=== PATIENT | male | born 1980 | race Caucasian/White ===

== ENCOUNTER 2018-02-25 21:45 | Inpatient (IN) | payer BC, OTHER ==
[~2018-02-25] VITALS: Ht 185.4 cm; Wt 88.2 kg
[2018-02-25] MEDS ORDERED: RT-ALBUTEROL/IPRATROPIUM 3 ML (DUONEB) VIAL ONE (22:05)
--- NOTE | 2018-02-25 22:10 | ED Respiratory ---
General Chief Complaint: Cough/Cold/Flu Symptoms Stated Complaint: CONGESTION,FEVER,COUGH,SOB Nursing Triage Note: PT STATES HE WAS SEEN IN A CLINIC AND PRESCRIBED ANTIBIOTICS AND GIVEN A STEROID SHOT FOR AN UPPER RESPIRATORY INFECTION FIVE DAYS AGO, PRESENTS TO THE ED REPORTING A LOW GRADE FEVER AND FEELING LIKE THERE IS MUCUS IN HIS LUNGS. Source: patient Exam Limitations: no limitations (AMADO AMIN APRN) History of Present Illness Date Seen by Provider: Feb 25, 2018 Time Seen by Provider: 22:08 Initial Comments to ER per private vehicle from home with reports of shortness of breath coughing and wheezing. He states that he was seen at a hospital in [facility] [place] about 4 days ago for this and was given an injection of steroids, nasal spray, inhaler and Zithromax. He denies any improvement. He does have a history of asthma. No fevers that he is aware of. Timing/Duration: week, getting worse Severity: moderate Prior Episodes/Possible Cause: occasional episodes Associated Symptoms: cough; No fever/chills; shortness of breath, wheezing ( AMADO AMIN APRN) Allergies and Home Medications Allergies Coded Allergies: No Known Drug Allergies (Unverified , 02/25/18) Home Medications Prednisone 20 Mg Tab, 60 MG PO UD 60 mg for 2 days then 40 mg for 3 days then 20 mg for 3 days Prescribed by: AMADO AMIN on 02/25/18 6915 Patient Home Medication List Home Medication List Reviewed: Yes (AMADO AMIN APRN) Review of Systems Review of Systems Constitutional: see HPI; No chills, No fever EENTM: see HPI Respiratory: see HPI, cough, short of breath, wheezing Cardiovascular: no symptoms reported Genitourinary: no symptoms reported Musculoskeletal: no symptoms reported Skin: no symptoms reported Psychiatric/Neurological: No Symptoms Reported Hematologic/Lymphatic: No Symptoms Reported (AMADO AMIN APRN) Past Anpoccg-Fzpcxe-Hpgizc Hx Patient Social History Recent Foreign Travel: No Contact w/Someone Who Travel: No Recent Infectious Disease Expo: No (AMADO AMIN APRN) Physical Exam Vital Signs - First Documented 02/25/18 02/25/18 21:57 22:12 Temp 99.5 Pulse 102 Resp 22 B/P (MAP) 114/98 (103) Pulse Ox 94 O2 Delivery Room Air (WING BERNSTEIN) Capillary Refill : Less Than 3 Seconds (AMADO AMIN APRN) Height: 6'1.00" Weight: 199lbs. oz. 90.839698hv; BMI Method:Stated General Appearance: WD/WN, no apparent distress Eyes: Bilateral Eye Normal Inspection, Bilateral Eye PERRL HEENT: PERRL/EOMI, normal ENT inspection, TMs normal Neck: non-tender, full range of motion Respiratory: no respiratory distress, no accessory muscle use, decreased breath sounds, wheezing, other (markedly diminished lung sounds with wheezing) Gastrointestinal: normal bowel sounds, non tender, soft Neurologic/Psychiatric: alert, normal mood/affect, oriented x 3 Skin: normal color, warm/dry (AMADO AMIN APRN) Progress/Results/Core Measures Suspected Sepsis Recent Fever Within 48 Hours: Yes Infection Criteria Present: Suspected New Infection New/Unexplained Altered Menta: No Sepsis Screen: Possible Sepsis Risk SIRS Temperature:99.5 Pulse: 102 Respiratory Rate: 22 Blood Pressure 114 /98 Mean: 103 (AMADO AMIN APRN) Results/Orders Medications Given in ED Current Medications Medications Dose Ordered Sig/Catalina Route Start Time Stop Time Status Last Admin Dose Admin Albuterol/ Ipratropium 3 ml ONCE ONCE INH 02/25/18 22:15 02/25/18 22:16 DC 02/25/18 22:26 3 ML Albuterol/ Ipratropium 3 ml STK-MED ONCE .ROUTE 02/25/18 22:05 02/25/18 22:09 DC 02/25/18 22:10 3 ML Prednisone 60 mg ONCE ONCE PO 02/25/18 22:15 02/25/18 22:16 DC 02/25/18 22:30 60 MG (WING BERNSTEIN) Vital Signs/I&O 02/25/18 02/25/18 02/25/18 02/25/18 21:57 22:00 22:12 22:22 Temp 99.5 Pulse 102 Resp 22 B/P (MAP) 114/98 (103) Pulse Ox 94 93 O2 Delivery Room Air Room Air Room Air Room Air (WING BERNSTEIN) Vital Signs/I&O Capillary Refill : Less Than 3 Seconds (AMADO AMIN APRN) Blood Pressure Mean: 103 Progress Note : Time: 00:30 Progress Note Even if the patient had a hour-long. He immediately desats down to 85% on room air. He still has tight diminished breath sounds bilaterally with some wheezing heard mostly at the left side more than right and apical more than base. We will talk to the on-call doctor about inpatient management. We have him on 8 L oxygen mask with oxygen saturation at 93% so overnight plan to try Vapotherm instead. (WING BERNSTEIN) Diagnostic Imaging Diagonstic Imaging: Xray Plain Films/CT/US/NM/MRI: chest (1v) Comments No acute cardiopulmonary processes noted. Reviewed: Reviewed by Me (WING BERNSTEIN) Departure Communication (Admissions) 2235-patient had just started his hour-long breathing treatment when he dropped it on the floor which caused it to spill everywhere. I will reorder it. (AMADO AMIN APRN) Time/Spoke to Admitting Phy: 00:20 Discussed case lab imaging and findings with Dr. Win and he agrees to admit the patient. (WING BERNSTEIN) Impression Primary Impression: Reactive airway disease Qualified Codes: J45.909 - Unspecified asthma, uncomplicated Disposition: ADMITTED INPATIENT Condition: Stable Admissions Decision to Admit Reason: Admit from ER (General) Decision to Admit/Date: Feb 26, 2018 Time/Decision to Admit Time: 00:29 (WING BERNSTEIN) Departure-Patient Inst. Decision time for Depature: 22:10 (AMADO AMIN APRN) Referrals: NO,LOCAL PHYSICIAN (PCP/Family) Primary Care Physician Scripts Prednisone (Prednisone) 20 Mg Tab 60 MG PO UD, #16 TAB 60 mg for 2 days then 40 mg for 3 days then 20 mg for 3 days Prov: AMADO AMIN APRN 02/25/18 AMADO AMIN APRN Feb 25, 2018 22:10 IWNG BERNSTEIN Feb 26, 2018 00:16
[2018-02-25] MEDS ORDERED: RT-ALBUTEROL/IPRATROPIUM 3 ML (DUONEB) VIAL INH ONE (22:15)
[2018-02-25] MEDS ORDERED: predniSONE 20 MG TAB PO ONE (22:15)
[2018-02-25] MEDS ORDERED: PRD20T PO (22:44)
--- NOTE | 2018-02-25 23:59 | NUR ---
ASSISTED PT TO SITTING POSITION AND ENCOURAGED COUGHING AND DEEP BREATHING, PT EXPECTORATED LARGE AMOUNTS OF SPUTUM, WHITE IN COLOR. PT VERBALIZED IMPROVED BREATHING
[2018-02-26] VITALS (14 sets, daily range): BP systolic 114–148; BP diastolic 50–118
--- NOTE | 2018-02-26 00:21 | NUR ---
BREATHING TREATMENT IS FINISHED, PT TITRATED TO ROOM AIR, 02 SATS DROP TO 85%, PLACED PT ON 8L VIA OXYMASK, 02 SAT 93%
[2018-02-26] MEDS: RT-ALBUTEROL SULF 2.5 MG/3 ML PRE-MIX VIAL INH SCH ×2 (00:24→02:09)
--- NOTE | 2018-02-26 01:55 | NUR ---
MADONNA CHANCE Preethi admitted to room 414-1, with an admitting diagnosis of asthma, hypoxia, viral URI, on 02/26/18 from ed via cart, accompanied by staff.MADONNA CHANCE introduced to surroundings, call light, bed controls, phone, TV, temperature control, lights, meal times, smoking policy, visitor policy, side rail policy, bathrooms and showers. Patient Rights given to patient in the handbook. MADONNA CHANCE verbalizes understanding that [facility] is not responsible for the loss or damage to any personal effects or valuables that are kept in the patients possession during their hospitalization. the pt plan of care was discussed with the pt, he verbalized understanding & denied any questions or concerns.MADONNA CHANCE verbalizes understanding of Interdisciplinary Patient Education. Patient and/or family were informed about the Rapid Response Team and its purpose.
[2018-02-26] MEDS ORDERED: NS IV 1000 ML 1,000 ML ONE (02:33)
[2018-02-26] MEDS: NS IV 1000 ML 1,000 ML IV SCH ×3 (03:00→22:33)
[2018-02-26] MEDS ORDERED: IBUPROFEN 800 MG (MOTRIN) TAB PO PRN (03:00)
[2018-02-26] MEDS: ACETAMINOPHEN 500 MG TAB (TYLENOL) PO PRN ×2 (03:01→13:15)
[2018-02-26] MEDS ORDERED: RT-ALBUTEROL/IPRATROPIUM 3 ML (DUONEB) VIAL INH PRN (03:30)
[2018-02-26 05:57] LABS: BASOPHILS % (AUTO) 0 % (0-10); EOSINOPHILS % (AUTO) 0 % (0-10); HEMATOCRIT 45 % (40-54); HEMOGLOBIN 15.8 G/DL (13.3-17.7); LYMPHOCYTES # (AUTO) 0.7 X 10^3 (1.0-4.0); LYMPHOCYTES % (AUTO) 9 % (12-44); MEAN CORPUSCULAR HEMOGLOBIN 32 PG (25-34); MEAN CORPUSCULAR HGB CONC 35 G/DL (32-36); MEAN CORPUSCULAR VOLUME 91 FL (80-99); MEAN PLATELET VOLUME 9.9 FL (7.4-10.4); MONOCYTES # (AUTO) 0.2 X 10^3 (0.0-1.0); MONOCYTES % (AUTO) 3 % (0-12); NEUTROPHILS % (AUTO) 88 % (42-75); PLATELET COUNT 252 10^3/uL (130-400); RED BLOOD COUNT 4.96 10^6/uL (4.35-5.85); RED CELL DISTRIBUTION WIDTH 12.8 % (10.0-14.5); WHITE BLOOD COUNT 6.9 10^3/uL (4.3-11.0)
--- NOTE | 2018-02-26 05:59 | NUR ---
0515 this rn called epharmacy in regards to pt prednisone schedule-pt received prednisone in ED at 2230, current schedule is to give at 0700 this rn was instructed by Afsaneh to give to this schedule & give the medication close to 0700 on 02/26/18
[2018-02-26 06:16] LABS: BAND NEUTROPHILS 3 %; BASOPHILS % (MANUAL) 0 %; EOSINOPHILS % (MANUAL) 0 %; LYMPHOCYTES % (MANUAL) 4 %; MONOCYTES % (MANUAL) 1 %; NEUTROPHILS % (MANUAL) 84 %; RBC MORPH NORMAL; REACTIVE LYMPHOCYTES 8 %
[2018-02-26] MEDS: RT-ALBUTEROL/IPRATROPIUM 3 ML (DUONEB) VIAL INH SCH ×8 (06:24→22:29)
[2018-02-26 06:29] LABS: BUN/CREATININE RATIO 15; CALCIUM 9.1 MG/DL (8.5-10.1); CARBON DIOXIDE 22 MMOL/L (21-32); CHLORIDE 104 MMOL/L (98-107); CREATININE SERUM 0.84 MG/DL (0.60-1.30); GFR ESTIMATED > 60; GLUCOSE 154 MG/DL (70-105); POTASSIUM 4.5 MMOL/L (3.6-5.0); SODIUM 138 MMOL/L (135-145)
[2018-02-26] MEDS ORDERED: predniSONE 20 MG TAB PO SCH (07:00)
--- NOTE | 2018-02-26 07:42 | Pulmonary Consultation ---
History of Present Illness History of Present Illness Date of Consultation 02/26/18 07:37 Time Seen by Provider: 07:37 Date of Admission History of Present Illness 37yo with hx of asthma presented to ED secondary to worsening SOB and wheezing. [facility] was [facility] with steroids, nasal spray, and Zithromax. He continued to worsen with out patient treatment. No f/ns/c. Allergies and Home Medications Allergies Coded Allergies: No Known Drug Allergies (Unverified , 02/25/18) Home Medications Albuterol Sulfate 1 Puff Puff, 2 PUFF IH Q4H 1 PUFF = 90 MCG Prescribed by: ADAN JAMESON on 02/28/18 09 Fluticasone/Vilanterol 1 Each Blst.w.dev, 1 EACH IH DAILY Prescribed by: ADAN JAMESON on 02/28/18904 Montelukast Sodium 10 Mg Tablet, 10 MG PO HS Prescribed by: ADAN JAMESON on 02/28/18904 Prednisone 10 Mg Tab.ds.pk, 10 MG PO DAILY Take 6 tabs(60mg)daily,decrease by 1 tab(10MG)daily. Prescribed by: ADAN JAMESON on 02/28/18904 Past Acmigev-Mpzmyd-Irchhy Hx Patient Social History Alcohol Use: Occasionally Uses Alcohol Beverage of Choice: Beer Recreational Drug Use: Yes Drug of Choice: pot Smoking Status: Current Everyday Smoker Type Used: Cigarettes Recent Foreign Travel: No Contact w/Someone Who Travel: No Recent Infectious Disease Expo: No Recent Hopitalizations: No Immunizations Up To Date PED Vaccines UTD: Yes Date of Pneumonia Vaccine: Nov 24, 2017 Date of Influenza Vaccine: Nov 24, 2017 Seasonal Allergies Seasonal Allergies: No Past Medical History Surgeries: Yes Respiratory: Yes Asthma Currently Using CPAP: No Currently Using BIPAP: No Cardiac: No Neurological: Yes Sexually Transmitted Disease: No HIV/AIDS: No Genitourinary: No Gastrointestinal: No Musculoskeletal: No Endocrine: No HEENT: No Loss of Vision: Denies Hearing Impairment: Denies Cancer: No Psychosocial: No Integumentary: No Blood Disorders: No Family Medical History Diabetes mellitus 19 FATHER FH: COPD (chronic obstructive pulmonary disease) 19 FATHER FH: breast cancer in first degree relative 19 MOTHER Review of Systems Time Seen by Provider: 09:01 Sepsis Event Evaluation Height, Weight, BMI Height: 6'1.00" Weight: 198lbs. 0.0oz. 89.201405uw; 26.1 BMI Method:Stated Exam Exam Vital Signs Date Time Temp Pulse Resp B/P (MAP) Pulse Ox O2 Delivery O2 Flow Rate FiO2 02/26/18 06:24 98 Vapotherm 18.00 75 02/26/18 04:00 98.6 77 18 127/70 (89) 98 Vapotherm 75.00 18.00 02/26/18 01:55 OxyMask 6.00 02/26/18 01:50 98.9 89 19 122/70 (87) 96 OxyMask 6.00 02/26/18 01:47 99.5 105 22 114/98 (103) 96 OxyMask 6.00 02/25/18 22:22 93 Room Air 02/25/18 22:12 94 Room Air 02/25/18 22:00 Room Air 02/25/18 21:57 99.5 102 22 114/98 (103) Room Air I & O 02/26/18 07:00 Intake Total 50 ml Output Total 400 ml Balance -350 ml Height & Weight Height: 6'.00" Weight: 198lbs. 0.0oz. 89.051874lc; 26.1 BMI Method:Stated General Appearance: Moderate Distress HEENT: PERRL/EOMI, Normal ENT Inspection Neck: Full Range of Motion, Non Tender, Supple Respiratory: Chest Non Tender, Accessory Muscle Use, Crackles, Decreased Breath Sounds, Respiratory Distress, Wheezing Cardiovascular: No Gallop, No JVD, No Murmur, Tachycardia Capillary Refill: Less Than 3 Seconds Gastrointestinal: normal bowel sounds, non tender, soft Extremity: Normal Capillary Refill Neurologic/Psychiatric: Alert Skin: Normal Color, Warm/Dry Lymphatic: No Adenopathy Results Lab Laboratory Tests 02/26/18 05:20 Assessment/Plan Assessment/Plan Acute respiratory distress with AsthmaAE -CUrrently on Vapotherm at 75% -titrate for Sp02 >93% -Duoneb currently Q4 and Q2 PRN -Change SVN to Q2 -Change prednisone to solumedrol 125mg IV X 1 then 40 Q6 -Start Claritin, Singulair, and Flonase. -Add mg, and phos to labs today -CXR reviewed -Check ABG Pt is lethargic and has not received anything sedating. I am going to transfer pt to ICU for closer observation. JULITO MCCALL DO Feb 26, 2018 07:42
[2018-02-26 07:58] LABS: PHOSPHORUS 2.7 MG/DL (2.3-4.7)
[2018-02-26] MEDS ORDERED: RT-ALBUTEROL SULF 2.5 MG/3 ML PRE-MIX VIAL INH SCH (08:00)
[2018-02-26 08:26] LABS: ABG BASE EXCESS 1.7 MMOL/L (-2.5-2.5); ABG OXYGEN SATURATION 97 % (94-100); ABG PCO2 46 MMHG (35-45); ABG PH 7.37 (7.37-7.43); ABG PO2 88 MMHG (79-93); ABG TCO2 27.8 MMOL/L (21.0-31.0)
[2018-02-26 08:27] LABS: ALLENS TEST YES-POS; INSPIRED O2 50%; PATIENT TEMP 98.8
[2018-02-26] MEDS: LORATADINE (CLARITIN) 10 MG TAB PO SCH (08:36)
[2018-02-26] MEDS: FLUTICASONE NASAL SPRAY (FLONASE) 16 GM BTL NS SCH (08:36)
--- NOTE | 2018-02-26 08:41 | Diagnostic Imaging Report ---
Patient History: Shortness of air. Technique: Single frontal view of the chest Comparison: None FINDINGS: The lung volumes are normal. No focal consolidation is seen. No large pleural effusion or pneumothorax is seen. The cardiomediastinal silhouette is normal in size and contour. No acute osseous abnormality is seen. IMPRESSION: No acute pulmonary abnormality seen. Dictated by: Dictated on workstation # [id number]
--- NOTE | 2018-02-26 08:55 | Diagnostic Imaging Report ---
PA and lateral chest at 852 hours. INDICATION: Asthma. FINDINGS: The heart size is within normal limits and stable when compared to 02/25/18. The lungs remain clear. There is still no sign of failure, pneumonia or pleural effusion to indicate an acute abnormality. The mediastinum is not widened. The osseous structures are intact. IMPRESSION: There is no for active disease. When compared to the prior study, there has been no significant change. Dictated by: Dictated on workstation # [id number]
--- NOTE | 2018-02-26 09:50 | History & Physical-Hospitalist ---
History of Present Illness HPI/Chief Complaint Pt is a 37yoCM with a PMH of asthma who presented to the ER due to shortness of breath. His symptoms started on 02/21 and he was seen by his PCP Dr Reilly on . He was prescribed a z-pack, Flonase, an inhaler, and a cough suppressant. Despite this his symptoms worsened and last night he presented to the ER for evaluation. He was found to be hypoxia on arrival and wheezing. He was placed on 8lpm and given an hour long breathing treatment. Despite this he continued to be hypoxia and feel short of breath. CXR revealed no infiltrate and he did not have a white count. He was admitted for acute asthma exacerbation. This morning he states he feels mildly better but is still short of breath and feels like he is wheezing. He denies any known diagnosis of COPD but he does smoke 1- 1.5ppd and uses albuterol prn. He says before last week he rarely needed his rescue inhaler. Source: patient Date Seen 02/26/18 Time Seen by a Provider: 09:30 Attending Physician Héctor Win MD PCP Gabriel Reilly DO Referring Physician Date of Admission Feb 26, 2018 at 01:07 Home Medications & Allergies Home Medications Reviewed patient Home Medication Reconciliation performed by pharmacy medication reconciliations layout technician and/or nursing. Patients Allergies have been reviewed. Allergies Allergies Coded Allergies No Known Drug Allergies (Unverified02/25/18) Past Dlikjhl-Qlzfbj-Nqtokw Hx Past Med/Social Hx: Reviewed Nursing Past Med/Soc Hx Patient Social History Marrital Status: Alcohol Use: Occasionally Uses Alcohol Beverage of Choice: Beer Recreational Drug Use: Yes Drug of Choice: pot Smoking Status: Current Everyday Smoker (started smoking at 12yo) Cigaretts per day: 30 Type Used: Cigarettes Physical Abuse Screen: No Sexual Abuse: No Recent Foreign Travel: No Contact w/other who traveled: No Recent Hopitalizations: No Recent Infectious Disease Expo: No Immunizations Up To Date Pediatric: Yes Date of Pneumonia Vaccine: Nov 24, 2017 Date of Influenza Vaccine: Nov 24, 2017 Seasonal Allergies Seasonal Allergies: No Past Medical History Surgeries: Ear Surgery Respiratory: Asthma Currently Using CPAP: No Currently Using BIPAP: No Sexually Transmitted Disease: No HIV/AIDS: No Loss of Vision: Denies Hearing Impairment: Denies History of Blood Disorders: No Family History Reviewed Nursing Family Hx Diabetes mellitus 19 FATHER FH: COPD (chronic obstructive pulmonary disease) 19 FATHER FH: breast cancer in first degree relative 19 MOTHER Asthma, COPD, Diabetes Review of Systems Constitutional: No chills, No fever EENTM: No blurred vision, No double vision, No nose congestion, No throat pain Respiratory: cough, dyspnea on exertion, short of breath Cardiovascular: No chest pain Gastrointestinal: No abdominal pain, No constipation, No diarrhea, No nausea, No vomiting Genitourinary: No dysuria, No frequency Musculoskeletal: No joint pain, No muscle pain Skin: No lesions, No rash Psychiatric/Neurological: Denies Headache, Denies Numbness, Denies Tingling Physical Exam Physical Exam Vital Signs Vital Signs - First Documented 02/25/18 02/25/18 02/26/18 02/26/18 21:57 22:12 01:47 06:24 Temp 99.5 Pulse 102 Resp 22 B/P (MAP) 114/98 (103) Pulse Ox 94 O2 Delivery Room Air O2 Flow Rate 6.00 FiO2 75 Capillary Refill : Less Than 3 Seconds Height, Weight, BMI Height: 6'1.00" Weight: 198lbs. 0.0oz. 89.296723yl; 26.1 BMI Method:Stated General Appearance: No Apparent Distress, WD/WN, Chronically ill HEENT: PERRL/EOMI, Moist Mucous Membranes Neck: Non Tender, Supple Respiratory: Wheezing, Other (on vapotherm) Cardiovascular: Regular Rate, Rhythm, No Murmur Gastrointestinal: Normal Bowel Sounds, Non Tender, Soft Extremity: Normal Capillary Refill, No Calf Tenderness Neurologic/Psychiatric: Alert, Oriented x3, Normal Mood/Affect Skin: Normal Color, Warm/Dry Results Results/Procedures Labs Laboratory Tests 02/26/18 05:20 02/27/18 06:25 Patient resulted labs reviewed. Imaging: Reviewed Imaging Report Assessment/Plan Admission Diagnosis Acute Asthma Exacerbation Admission Status: Inpatient Order (span 2 midnights) Reason for Inpatient Admission: failed outpatient management- on vapotherm Diagnosis/Problems Diagnosis/Problems (1) Asthma with acute exacerbation Assessment & Plan: Per report from albuterol use appears to have mild intermittent asthma at baseline Likely has underlying COPD as well given 25py history Continue on steroids, scheduled duonebs Pulm consulted appreciate recs Wean Vapotherm as able Qualifiers: Asthma severity: mild Asthma persistence: intermittent Qualified Codes: J45.21 - Mild intermittent asthma with (acute) exacerbation (2) Tobacco abuse disorder Assessment & Plan: Discussed at length about need to quit smoking Patient reports desire to quit Declined nicotine patch Clinical Quality Measures DVT/VTE Risk/Contraindication: Risk Factor Score Per Nursin RFS Level Per Nursing on Admit: 2=Moderate ADAN JAEMSON MD Feb 26, 2018 09:50
--- NOTE | 2018-02-26 09:51 | NUR ---
ASSUMED CARE OF THIS PATIENT AT THIS TIME, THIS RN AGREES WITH THE PREVIOUS BOBBIN PRESSER. THIS RN WILL CONT TO MONITOR THIS PATIENT AT THIS TIME.
[2018-02-26] MEDS: NICOTINE 14 MG (NICODERM) PATCH TD PRN (10:46)
[2018-02-26] MEDS ORDERED: methylPREDNISolone 125 MG (Solu-MEDROL) VIAL IVP NR (11:45)
[2018-02-26] MEDS: methylPREDNISolone 40 MG/ML (Solu-MEDROL) VIAL IV SCH ×2 (11:54→18:05)
--- NOTE | 2018-02-26 13:00 | NUR ---
PATIENT TRANSFERRED TO ICU-[address] MCCALL. THIS RN GAVE REPORT TO Golden ERNST RN AT THIS TIME, WHO WILL ASSUME CARE OF THIS PATIENT.
[2018-02-26] MEDS: RT-BUDESONIDE NEBS 0.5 MG/2ML (PULMICORT) AMP INH SCH (20:54)
[2018-02-26] MEDS: MONTELUKAST 10 MG (SINGULAIR) TAB PO SCH (21:13)
[2018-02-27] VITALS (16 sets, daily range): BP systolic 116–153; BP diastolic 60–108
[2018-02-27] MEDS: RT-ALBUTEROL/IPRATROPIUM 3 ML (DUONEB) VIAL INH SCH ×8 (00:15→22:11)
[2018-02-27] MEDS: methylPREDNISolone 40 MG/ML (Solu-MEDROL) VIAL IV SCH ×5 (00:40→23:41)
--- NOTE | 2018-02-27 05:34 | Pulmonary Progress Note ---
Subjective Time Seen by a Provider: 05:40 Subjective/Events-last exam PT is doing better. His oxygen has been decreased to 45% and he's doing well with it. Sepsis Event Evaluation Height, Weight, BMI Height: 6'1.00" Weight: 198lbs. 0.0oz. 89.587739re; 26.1 BMI Method:Stated Exam Exam Vital Signs Date Time Temp Pulse Resp B/P (MAP) Pulse Ox O2 Delivery O2 Flow Rate FiO2 02/27/18 05:00 97 143/82 (102) Vapotherm 45.00 10.00 02/27/18 04:13 93 Vapotherm 9.00 40 02/27/18 04:00 95 Vapotherm 9.00 45 02/27/18 04:00 84 150/85 (106) 97 Vapotherm 45.00 10.00 02/27/18 03:00 111 134/77 (96) 93 Vapotherm 45.00 10.00 02/27/18 02:05 Vapotherm 9.00 40 02/27/18 02:00 108 20 139/103 (115) Vapotherm 45.00 10.00 02/27/18 01:00 104 138/75 (96) 97 Vapotherm 45.00 10.00 02/27/18 01:00 109 02/27/18 00:15 94 Vapotherm 9.00 40 02/27/18 00:00 115 21 137/94 (108) 95 Vapotherm 45.00 10.00 02/27/18 00:00 95 Vapotherm 9.00 45 02/26/18 23:00 105 15 122/50 (74) 97 Vapotherm 45.00 10.00 02/26/18 22:29 95 Vapotherm 10.00 45 02/26/18 22:00 112 21 134/75 (94) 94 Vapotherm 45.00 10.00 02/26/18 21:00 122 16 148/118 (128) 95 Vapotherm 45.00 10.00 02/26/18 20:59 95 Vapotherm 10.00 45 02/26/18 20:54 95 Vapotherm 10.00 45 02/26/18 20:00 112 22 133/72 (92) 93 Vapotherm 45.00 10.00 02/26/18 20:00 97.6 02/26/18 20:00 95 Vapotherm 10.00 45 02/26/18 19:08 95 Vapotherm 10.00 50 02/26/18 19:00 107 12 136/77 (96) 93 Vapotherm 45.00 10.00 02/26/18 19:00 107 02/26/18 18:00 123 20 140/81 (100) 96 Vapotherm 50.00 10.00 02/26/18 17:00 114 17 126/74 (91) 93 Vapotherm 50.00 10.00 02/26/18 16:31 99.6 02/26/18 16:07 93 Vapotherm 10.00 50 02/26/18 16:00 112 11 114/73 (87) 97 Vapotherm 50.00 10.00 02/26/18 16:00 95 Vapotherm 10.00 50 02/26/18 15:00 110 14 133/83 (100) 96 Vapotherm 50.00 10.00 02/26/18 14:11 Vapotherm 50.00 10.00 02/26/18 14:09 95 Vapotherm 10.00 50 02/26/18 14:00 114 19 145/79 (101) 93 Vapotherm 50.00 15.00 02/26/18 13:23 113 02/26/18 13:00 98.3 105 14 131/74 (93) 95 Vapotherm 50.00 15.00 02/26/18 12:42 93 Vapotherm 18.00 50 02/26/18 09:59 93 Vapotherm 18.00 50 02/26/18 08:34 98.0 102 20 131/74 (93) 93 Vapotherm 50.00 18.00 02/26/18 08:00 93 Vapotherm 18.00 50 02/26/18 06:24 98 Vapotherm 18.00 75 I & O 02/27/18 07:00 Intake Total 2120 ml Output Total 1525 ml Balance 595 ml Height & Weight Height: 6'1.00" Weight: 198lbs. 0.0oz. 89.807254xf; 26.1 BMI Method:Stated General Appearance: No Apparent Distress, WD/WN, Chronically ill HEENT: PERRL/EOMI, Moist Mucous Membranes Neck: Non Tender, Supple Respiratory: Decreased Breath Sounds, Other (on vapotherm) Cardiovascular: Regular Rate, Rhythm, No Murmur Capillary Refill: Less Than 3 Seconds Gastrointestinal: normal bowel sounds, non tender, soft Extremity: Normal Capillary Refill, No Calf Tenderness Neurologic/Psychiatric: Alert, Oriented x3, Normal Mood/Affect Skin: Normal Color, Warm/Dry Results Lab Laboratory Tests 02/26/18 05:20 Assessment/Plan Assessment/Plan Acute respiratory distress with AsthmaAE -CUrrently on Vapotherm at 75% -- now down to 45% -Will try to decrease to regular NC -titrate for Sp02 >93% -Duoneb currently Q2 change to Q4 and Q2 PRN - solumedrol 40 Q6 -Start Claritin, Singulair, and Flonase. -CXR reviewed -Check ABG Sinus tach - secondary to asthma AE and SVN tx -Continue telemetry -Labs pending Tobacco and occasional marijuana use -Education Pt is doing better I am going to transfer pt back to 4th floor. JULITO MCCALL DO Feb 27, 2018 05:34
[2018-02-27] MEDS: RT-BUDESONIDE NEBS 0.5 MG/2ML (PULMICORT) AMP INH SCH ×2 (06:51→19:25)
[2018-02-27 06:52] LABS: BASOPHILS % (AUTO) 0 % (0-10); EOSINOPHILS % (AUTO) 0 % (0-10); HEMATOCRIT 43 % (40-54); LYMPHOCYTES # (AUTO) 1.3 X 10^3 (1.0-4.0); LYMPHOCYTES % (AUTO) 8 % (12-44); MEAN CORPUSCULAR HEMOGLOBIN 32 PG (25-34); MEAN CORPUSCULAR HGB CONC 35 G/DL (32-36); MEAN CORPUSCULAR VOLUME 91 FL (80-99); MEAN PLATELET VOLUME 9.6 FL (7.4-10.4); MONOCYTES # (AUTO) 0.9 X 10^3 (0.0-1.0); MONOCYTES % (AUTO) 6 % (0-12); NEUTROPHILS # (AUTO) 13.7 X 10^3 (1.8-7.8); NEUTROPHILS % (AUTO) 86 % (42-75); PLATELET COUNT 283 10^3/uL (130-400); RED BLOOD COUNT 4.76 10^6/uL (4.35-5.85); RED CELL DISTRIBUTION WIDTH 12.8 % (10.0-14.5)
--- NOTE | 2018-02-27 07:15 | Progress Note-Hospitalist ---
Subjective HPI/CC On Admission Date Seen by Provider: Feb 27, 2018 Time Seen by Provider: 07:13 Pt is a 37yoCM with a PMH of asthma who presented to the ER due to shortness of breath. His symptoms started on 02/21 and he was seen by his PCP Dr Reilly on . He was prescribed a z-pack, Flonase, an inhaler, and a cough suppressant. Despite this his symptoms worsened and last night he presented to the ER for evaluation. He was found to be hypoxia on arrival and wheezing. He was placed on 8lpm and given an hour long breathing treatment. Despite this he continued to be hypoxia and feel short of breath. CXR revealed no infiltrate and he did not have a white count. He was admitted for acute asthma exacerbation. This morning he states he feels mildly better but is still short of breath and feels like he is wheezing. He denies any known diagnosis of COPD but he does smoke 1- 1.5ppd and uses albuterol prn. He says before last week he rarely needed his rescue inhaler. Subjective/Events-last exam Pt reports feeling better. Breathing is better and feels less wheezing. Objective Exam Vital Signs Vital Signs Date Time Temp Pulse Resp B/P (MAP) Pulse Ox O2 Delivery O2 Flow Rate FiO2 02/27/18 06:51 98 Vapotherm 9.00 45 02/27/18 06:06 113 128/105 (113) 02/27/18 04:00 97.8 02/27/18 02:00 20 Capillary Refill : Less Than 3 Seconds General Appearance: No Apparent Distress, WD/WN Respiratory: No Accessory Muscle Use, No Respiratory Distress, Wheezing Cardiovascular: Regular Rate, Rhythm, No Murmur Neurologic/Psychiatric: Alert, Oriented x3, Normal Mood/Affect Results/Procedures Lab Laboratory Tests 02/27/18 06:25 Patient resulted labs reviewed. Imaging: Reviewed Imaging Report Assessment/Plan Assessment and Plan Assess & Plan/Chief Complaint Asthma exacerbation Diagnosis/Problems Diagnosis/Problems (1) Asthma with acute exacerbation Assessment & Plan: Per report from albuterol use appears to have mild intermittent asthma at baseline Likely has underlying COPD as well given 25py history Continue on IV steroids, scheduled duonebs Pulm consulted appreciate recs Weaning off vapotherm as able Will transfer to floor Qualifiers: Asthma severity: mild Asthma persistence: intermittent Qualified Codes: J45.21 - Mild intermittent asthma with (acute) exacerbation (2) Tobacco abuse disorder Assessment & Plan: Discussed at length about need to quit smoking Patient reports desire to quit Declined nicotine patch Patient education Clinical Quality Measures DVT/VTE Risk/Contraindication: Risk Factor Score Per Nursin RFS Level Per Nursing on Admit: 2=Moderate ADAN JAMESON MD Feb 27, 2018 07:15
[2018-02-27 07:21] LABS: BUN/CREATININE RATIO 12; CALCIUM 9.4 MG/DL (8.5-10.1); CARBON DIOXIDE 22 MMOL/L (21-32); CHLORIDE 105 MMOL/L (98-107); CREATININE SERUM 0.78 MG/DL (0.60-1.30); GFR ESTIMATED > 60; GLUCOSE 122 MG/DL (70-105); MAGNESIUM 1.9 MG/DL (1.8-2.4); PHOSPHORUS 3.7 MG/DL (2.3-4.7); POTASSIUM 4.2 MMOL/L (3.6-5.0); SODIUM 138 MMOL/L (135-145)
[2018-02-27 07:40] LABS: BAND NEUTROPHILS 0 %; BASOPHILS % (MANUAL) 0 %; EOSINOPHILS % (MANUAL) 0 %; LYMPHOCYTES % (MANUAL) 8 %; MONOCYTES % (MANUAL) 2 %; NEUTROPHILS % (MANUAL) 90 %; RBC MORPH NORMAL
[2018-02-27] MEDS: LORATADINE (CLARITIN) 10 MG TAB PO SCH (09:20)
[2018-02-27] MEDS: NICOTINE PATCH REMOVAL TP SCH (09:21)
[2018-02-27] MEDS: NICOTINE 14 MG (NICODERM) PATCH TD PRN (09:28)
[2018-02-27] MEDS: FLUTICASONE NASAL SPRAY (FLONASE) 16 GM BTL NS SCH (09:28)
--- NOTE | 2018-02-27 12:40 | NUR ---
REPORT CALLED DOWN TO YECENIA ESTEVES, TAKING PATIENT TO ROOM 414.
--- NOTE | 2018-02-27 12:45 | NUR ---
Patient to room 414 from ICU at this time. Care assumed.
[2018-02-27] MEDS: ACETAMINOPHEN 500 MG TAB (TYLENOL) PO PRN (13:25)
[2018-02-27] MEDS: ONDANSETRON 4 MG/2 ML (SDV) Z0FRAN IV PRN ×2 (17:27→21:41)
[2018-02-27] MEDS: CALCIUM CARBONATE 500 MG (TUMS) TAB.CHEW PO PRN ×2 (18:06→21:41)
[2018-02-27] MEDS: MONTELUKAST 10 MG (SINGULAIR) TAB PO SCH (20:44)
[2018-02-28 00:12] VITALS: BP 143/78
[2018-02-28] MEDS: RT-ALBUTEROL/IPRATROPIUM 3 ML (DUONEB) VIAL INH SCH ×2 (02:39→06:48)
[2018-02-28] MEDS: ACETAMINOPHEN 500 MG TAB (TYLENOL) PO PRN (02:49)
[2018-02-28 04:07] VITALS: BP 161/75
[2018-02-28] MEDS: methylPREDNISolone 40 MG/ML (Solu-MEDROL) VIAL IV SCH (06:19)
--- NOTE | 2018-02-28 06:40 | NUR ---
SPO2 DID NOT DROP BELOW 90% WITH EXERTION. Addendum: 02/28/18 at 0656 by KATIE CORONA RT Amended: Links added.
[2018-02-28] MEDS: RT-BUDESONIDE NEBS 0.5 MG/2ML (PULMICORT) AMP INH SCH (06:50)
[2018-02-28 08:00] VITALS: BP 139/76
[2018-02-28] MEDS: NICOTINE PATCH REMOVAL TP SCH (08:57)
[2018-02-28] MEDS ORDERED: PRED10TA22 PO (09:05)
[2018-02-28] MEDS ORDERED: MONT10TA24 PO (09:05)
[2018-02-28] MEDS ORDERED: RT-ALBUINH IH (09:05)
[2018-02-28] MEDS ORDERED: FLUT1BLS IH (09:05)
--- NOTE | 2018-02-28 09:07 | Discharge Inst-Simple/Standard ---
Discharge Inst-Standard Discharge Medications New, Converted or Re-Newed RX: Transmitted to Pharmacy Patient Instructions/Follow Up Plan of Care/Instructions/FU: Please continue to take your medications as written. Please follow up with your PCP in [address] Bhardwaj in the next 2-4 weeks. It is very important that you quit smoking to help prevent further damage to your lungs. Activity as Tolerated: Yes Discharge Diet: No Restrictions Return to The Hospital For: Shortness of breath, cough, fever, if you feel you are getting worse ADAN JAMESON MD Feb 28, 2018 09:07
[2018-02-28] MEDS: FLUTICASONE NASAL SPRAY (FLONASE) 16 GM BTL NS SCH (09:11)
[2018-02-28] MEDS: LORATADINE (CLARITIN) 10 MG TAB PO SCH (09:11)
--- NOTE | 2018-02-28 09:11 | Discharge Summary-Hospitalist ---
Diagnosis/Chief Complaint Date of Admission Feb 26, 2018 at 01:07 Date of Discharge Discharge Date: Feb 28, 2018 Admission Diagnosis Acute Asthma Exacerbation Discharge Diagnosis (1) Asthma with acute exacerbation Assessment & Plan: Per report from albuterol use appears to have mild intermittent asthma at baseline Likely has underlying COPD as well given 25py history Continue on IV steroids, scheduled duonebs Pulm consulted appreciate recs Weaning off vapotherm as able Will transfer to floor (2) Tobacco abuse disorder Assessment & Plan: Discussed at length about need to quit smoking Patient reports desire to quit Declined nicotine patch Patient education Discharge Summary Procedures/Consulations Dr Bhardwaj Discharge Physical Exam Allergies: Coded Allergies: No Known Drug Allergies (Unverified , 02/25/18) Vitals & I&Os Vital Signs Date Time Temp Pulse Resp B/P (MAP) Pulse Ox O2 Delivery O2 Flow Rate FiO2 02/28/18 06:53 97 Room Air 02/28/18 04:07 97.6 105 16 161/75 (103) 4.00 02/27/18 07:36 45 General Appearance: No Apparent Distress, WD/WN Respiratory: Lungs Clear, No Accessory Muscle Use, No Respiratory Distress, Other Cardiovascular: Regular Rate, Rhythm, No Murmur Neurologic/Psychiatric: Alert, Oriented x3 Hospital Course Pt is a 37yoCM with a PMH of asthma and tobacco abuse who presented to the ER due to SOB and was admitted for acute asthma exacerbation. He responded well to IV steroids and scheduled breathing treatments. He had an uneventful hospital course. He was seen in consultation by Dr Bhardwaj who will follow up with him as an outpatient. He is to continue on his inhalers that were sent to the pharmacy and complete his steroid taper. He was tested for oxygen and did not require home oxygen. ON day of discharge he was in stable condition and requesting DC home. Smoking cessation was strongly encouraged. Labs (last 24 hrs) Patient resulted labs reviewed. Imaging: Reviewed Imaging Report Discussion & Recommendations Discharge Planning: >30 minutes discharge planning Discharge Home Medications: Active Scripts Active Proair Hfa (Albuterol Sulfate) 1 Puff Puff 2 Puff IH Q4H 1 PUFF = 90 MCG Breo Ellipta 200-25 Mcg INH (Fluticasone/Vilanterol) 1 Each Blst.w.dev 1 Each IH DAILY Prednisone 10 Mg Tab.ds.pk 10 Mg PO DAILY Take 6 tabs(60mg)daily,decrease by 1 tab(10MG)daily. Montelukast Sodium 10 Mg Tablet 10 Mg PO HS Instructions to patient/family Please see electronic discharge instructions given to patient. Clinical Quality Measures DVT/VTE Risk/Contraindication: Risk Factor Score Per Nursin RFS Level Per Nursing on Admit: 2=Moderate Problem Qualifiers (1) Asthma with acute exacerbation: Asthma severity: mild Asthma persistence: intermittent Qualified Codes: J45.21 - Mild intermittent asthma with (acute) exacerbation ADAN JAMESON MD Feb 28, 2018 09:11
--- NOTE | 2018-02-28 09:21 | NUR ---
MADONNA CHANCE demonstrates understanding of discharge instructions and accurately returns instructions upon questioning. Copy of Post-Discharge Instructions and Medication Discharge Instructions given to patient. MADONNA CHANCE is able to manage continuing needs after discharge. Patients belongings returned to patient. Skin dry and intact; no breakdown noted. Patient discharged from [facility] on 02/28/18 at 0920. MADONNA CHANCE left floor ambulating, accompanied by staff and family.
== END 2018-02-28 09:23 | disposition home or self-care (01) | DRG 203 ==
LOC: ER 21:48 → 4TH 02-26 01:07 → ICU 02-26 13:00 → 4TH 02-27 12:45
PROVIDERS: ADMIT Internal Medicine; ATTEND Internal Medicine
DX: J45.21 Mild intermittent asthma with (acute) exacerbation (principal); R06.03 Acute respiratory distress; F17.210 Nicotine dependence, cigarettes, uncomplicated; R09.02 Hypoxemia; R00.0 Tachycardia, unspecified
CPT/HCPCS: 36415; 36600; 71045; 71046; 80048; 82805; 83735; 84100; 85007; 85027; 94640; 94644; 94761